=== PATIENT | male | born 1985 | race Two or more races ===

== ENCOUNTER 2023-11-22 14:03 | Emergency (ER) | payer MEDICAID ==
[~2023-11-22] VITALS: Ht 162.6 cm; Wt 72.6 kg
[2023-11-22] MEDS ORDERED: LORAZEPAM 1 MG TABLET ONE (15:00)
[2023-11-22] MEDS: LORAZEPAM 1 MG TABLET PO ONE (15:04)
[2023-11-22 16:22] VITALS: BP 126/81; TEMP 98.2; O2SAT 100
== END 2023-11-22 15:45 | disposition home or self-care (01) ==
LOC: ER 14:09
DX: M54.2 Cervicalgia (principal)

== ENCOUNTER 2024-03-10 17:07 | Emergency (ER) | payer BC, MEDICAID ==
[~2024-03-10] VITALS: Ht 162.6 cm; Wt 65.8 kg
[2024-03-10 17:16] VITALS: TEMP 98.4
[2024-03-10 17:43] LABS: BASOPHILS % (AUTO) 0.7 % (0.0-2.0); EOSINOPHILS # (AUTO) 0.2 K/uL (0.0-0.7); EOSINOPHILS % (AUTO) 3.6 % (0.0-6.0); HEMATOCRIT 44 % (39-51); HEMOGLOBIN 15.1 g/dL (13.5-17.5); LYMPHOCYTES # (AUTO) 2.3 K/uL (0.8-4.8); LYMPHOCYTES % (AUTO) 42.7 % (20.0-44.0); MEAN CORPUSCULAR HEMOGLOBIN 29 PG (26.0-33.0); MEAN CORPUSCULAR HGB CONC 34 g/dl (31.0-36.0); MEAN CORPUSCULAR VOLUME 85 fL (80-96); MONOCYTES # (AUTO) 0.3 K/uL (0.1-1.30); MONOCYTES % (AUTO) 4.7 % (2.0-12.0); NEUTROPHILS # (AUTO) 2.6 K/uL (1.8-8.9); NEUTROPHILS % (AUTO) 48.3 % (43.0-81.0); PLATELET COUNT (AUTO) 208 K/uL (150-450); RED BLOOD CELL COUNT(AUTO) 5.19 MIL/uL (4.5-6.0); RED CELL DISTRIBUTION WIDTH 12.8 % (11.5-15.0); WHITE BLOOD COUNT (AUTO) 5.4 K/uL (4.3-11.0)
[2024-03-10 17:51] LABS: CALCIUM, SERUM 9.7 mg/dL (8.5-10.1); CARBON DIOXIDE 26 mmol/L (21-32); CHLORIDE 103 mmol/L (98-107); CREATININE 1.2 mg/dL (0.6-1.3); GLUCOSE 104 mg/dL (74-106); POTASSIUM 3.5 mmol/L (3.5-5.1); SODIUM SERUM 138 mmol/L (136-145); UREA NITROGEN, BLOOD 16 mg/dL (7-18)
[2024-03-10 22:02] VITALS: BP 134/70; O2SAT 97
== END 2024-03-10 20:55 | disposition home or self-care (01) ==
LOC: ER 17:09
DX: R07.9 Chest pain, unspecified (principal); F41.9 Anxiety disorder, unspecified; G90.A Postural orthostatic tachycardia syndrome [POTS]; Z86.69 Personal history of other diseases of the nervous system and sense organs
CPT/HCPCS: 36415; 71045-TC; 80048-TC; 84484-TC; 85025-TC